=== PATIENT | male | born 1990 ===

== ENCOUNTER → 2019-07-09 | Outpatient (REF) | payer OTHER ==
[2019-07-09 14:20] LABS: SEMEN APPEARANCE OPAQUE (OPAQUE); SEMEN VISCOSITY LIQUID (LIQUID); SEMEN VOLUME 2.5 ml (2.0-5.0); SEMEN pH 8.5 (7.0-8.0); SPERM CONCENTRATION 32.4 M/ml (>=15.0); WBC CONCENTRATION >1 M/ml (<=1 M/ml)
== END ==
LOC: M LAB REF 14:15
PROVIDERS: ATTEND Obstetrics & Gynecology
DX: N46.8 Other male infertility (principal)